=== PATIENT | male | born 1975 | race Caucasian/White ===

== ENCOUNTER 2018-07-25 10:39 | Inpatient (IN) | payer OTHER ==
[2018-07-25] VITALS (8 sets, daily range): BP systolic 99–121; BP diastolic 24–90
[~2018-07-25] VITALS: Ht 188 cm; Wt 147.4 kg
--- NOTE | 2018-07-25 10:39 | NUR ---
Patient BIBA BLS, transferred to bed 10. RN evaluating patient at bedside.
--- NOTE | 2018-07-25 10:39 | NUR ---
PT BIB [facility] TO THE ED WITH THE CHIEF C/O SOB. SWALLOW BREATHING. TACHYPNIC AT THIS TIME. ON NON-REBREATHER 100%. SPO2 92%. LUNGS COARSE ON AUSCULTATION. FEBRILE. TEMPERATURE 103.4 DEGREE F. COOLING MEASURES APPLIED. A/O X4. GCS 15. PT RE[PORTS VOMITING X3 LAST NIGHT. NO BLOOD IN VOMIT. DENIES DIARRHEA. STATES GENERALIZED BODY PAIN 10/10 AT THIS TIME. PT HAS NOT TAKE ANY PAIN MEDS TODAY PER PT. ER MD AWARE OF PT STATUS AND FEVER.
--- NOTE | 2018-07-25 10:42 | NUR ---
Dr. Benavides evaluating patient at bedside.
[2018-07-25] MEDS ORDERED: IPRATROPIUM 0.02% 0.5 MG/2.5 ML NEBU INH ONE (11:00)
[2018-07-25] MEDS ORDERED: KETOROLAC 30 MG/ML VIAL IVP ONE (11:00)
[2018-07-25] MEDS ORDERED: ALBUTEROL 0.083% 2.5 MG/3 ML NEBU INH ONE (11:00)
[2018-07-25] MEDS ORDERED: ACETAMINOPHEN 325 MG TAB PO ONE (11:00)
--- NOTE | 2018-07-25 11:10 | NUR ---
RECEIVED PT FROM EMT ON BREATHING RX PT AWAKE ALERT S.O.B PLACED PT ON NRM SPO2 88 TO .90 BREARTH SOUNDS PRESENT BILAT COARSE SHALLOW HHN RX GIVEN ABG DRAWN DR MORILLO ORDERED PT BE PUT ON BIPAP WITH SETTINGS CHARTED WILL CONTINUE TO MONITOR PT
--- NOTE | 2018-07-25 11:10 | NUR ---
Dr. Benavides re-evaluating patient at bedside.
--- NOTE | 2018-07-25 11:21 | NUR ---
SANDIE GARCIA FOR UA SAMPLE CORRECTION. Addendum: 07/25/18 at 1132 by LILIAN COLLECTION.
--- NOTE | 2018-07-25 11:24 | NUR ---
Breathing treatment administered at bedside by respiratory therapist.
[2018-07-25] MEDS ORDERED: THO25 PO (11:26)
[2018-07-25] MEDS ORDERED: PANT40EC PO (11:26)
[2018-07-25] MEDS ORDERED: DOL10 PO (11:26)
[2018-07-25] MEDS ORDERED: MIRABULK PO (11:26)
[2018-07-25] MEDS ORDERED: ASPI-1718 PO (11:26)
[2018-07-25] MEDS ORDERED: SULF500T6 PO (11:26)
[2018-07-25] MEDS ORDERED: FERR325E14 PO (11:26)
[2018-07-25] MEDS ORDERED: GABA400C PO (11:26)
[2018-07-25] MEDS ORDERED: DOCU-299 PO (11:26)
[2018-07-25] MEDS ORDERED: [UNRECOGNIZED DRUG - CODE] PO (11:26)
[2018-07-25] MEDS ORDERED: LEVE750T3 PO (11:26)
[2018-07-25] MEDS ORDERED: NUTR887L PO (11:26)
[2018-07-25] MEDS ORDERED: VENL150C1 PO (11:26)
[2018-07-25] MEDS ORDERED: SENN-72 PO (11:26)
[2018-07-25] MEDS ORDERED: LACT10SO1 PO (11:26)
[2018-07-25] MEDS ORDERED: HYDR200T5 PO (11:26)
--- NOTE | 2018-07-25 11:32 | NUR ---
RT AT THE BEDSIDE.
[2018-07-25 11:41] LABS: HEMATOCRIT 34.7 % (36-52); HEMOGLOBIN 11.3 g/dL (12.0-18.0); MEAN CORPUSCULAR HEMOGLOBIN 29 pg (27-31); MEAN CORPUSCULAR HGB CONC 32 g/dL (33-37); MEAN CORPUSCULAR VOLUME 89.2 fL (80-94); PLATELET COUNT (AUTO) 125 K/uL (140-450); RED BLOOD CELL COUNT(AUTO) 3.89 MIL/uL (4.20-6.10); RED CELL DISTRIBUTION WIDTH 15.1 % (11.6-13.7); WHITE BLOOD COUNT (AUTO) 13.4 K/uL (4.8-10.8)
--- NOTE | 2018-07-25 11:42 | NUR ---
registered radiologic technologist at bedside.
[2018-07-25] MEDS ORDERED: ATI.5 PO (11:51)
[2018-07-25] MEDS ORDERED: NITR0.4T2 SL (11:51)
[2018-07-25] MEDS ORDERED: PRED10TA5 PO (11:51)
[2018-07-25] MEDS ORDERED: LIP80 PO (11:51)
[2018-07-25] MEDS ORDERED: ACET-5636 PO (11:51)
[2018-07-25] MEDS ORDERED: DEXT15SY7 PO (11:51)
[2018-07-25] MEDS ORDERED: OFLO5SOL27 OT (11:51)
[2018-07-25] MEDS ORDERED: SUCR1TAB35 PO (11:51)
[2018-07-25] MEDS ORDERED: MAGN400S60 PO (11:51)
[2018-07-25] MEDS ORDERED: CARV6.25 PO (11:51)
[2018-07-25] MEDS ORDERED: OLOPATADINE HCL BOTH EYES (11:51)
[2018-07-25] MEDS ORDERED: INSU100S22 SUBQ (11:51)
[2018-07-25] MEDS ORDERED: METO-485 PO (11:51)
[2018-07-25] MEDS ORDERED: ZOLP10TA1 PO (11:51)
[2018-07-25] MEDS ORDERED: ACET-2619 PO (11:51)
[2018-07-25] MEDS ORDERED: SIME80CT70 PO (11:51)
[2018-07-25] MEDS ORDERED: IMI50 PO (11:51)
--- NOTE | 2018-07-25 11:54 | NUR ---
FEVER DECREASED TO 99.6 DECREASE F.
[2018-07-25 11:55] LABS: APPEARANCE,URINE CLEAR (CLEAR); BILIRUBIN,URINE NEGATIVE (NEGATIVE); BLOOD, URINE 2+ (NEGATIVE); COLOR,URINE YELLOW (YELLOW); LEUKOCYTE ESTERASE ,URINE NEGATIVE (NEGATIVE); NITRITE, URINE NEGATIVE (NEGATIVE); UGLUCOSE NEGATIVE (NEGATIVE)
--- NOTE | 2018-07-25 11:56 | NUR ---
PT BEING RE-EVALUATED BY ALLISON TOSCANO AT THIS TIME.
--- NOTE | 2018-07-25 12:07 | NUR ---
RT AT THE BEDSIDE, PLACING PT ON BIPAP.
[2018-07-25 12:11] LABS: BASOPHILS % (MANUAL) 0 % (0-2); EOSINOPHILS % (MANUAL) 1 % (0-4); LYMPHOCYTES % (MANUAL) 4 % (20-46); MONOCYTES % (MANUAL) 5 % (5-12)
[2018-07-25 12:16] LABS: RBC,URINE 11-20 (MOD) /HPF (0-5); WBC,URINE 0-5 /HPF (0-5)
[2018-07-25 12:16] LABS: ALBUMIN 2.3 g/dL (3.4-5.0); ANION GAP 13.6 (8-16); CARBON DIOXIDE 26.3 mmol/L (21-32); CREATININE 0.8 mg/dL (0.7-1.3); POTASSIUM 3.9 mmol/L (3.5-5.1); TOTAL BILIRUBIN 0.6 mg/dL (0.0-1.0)
[2018-07-25] MEDS ORDERED: SUMAtriptan 50 MG TAB PO ONE (12:50)
[2018-07-25] MEDS ORDERED: LEVOFLOXACIN 500 MG/D5W PREMIX 100 ML IV ONE (12:50)
--- NOTE | 2018-07-25 12:57 | NUR ---
Dr. Morton evaluating patient at bedside.
[2018-07-25] MEDS: NACL 0.9% 1,000 ML IV SCH (12:59)
[2018-07-25] MEDS: ALBUTEROL 0.083% 2.5 MG/3 ML NEBU IH SCH ×2 (13:00→19:34)
[2018-07-25] MEDS ORDERED: methylPREDNISolone SS 40 MG/ML VIAL IVP SCH (13:11)
[2018-07-25] MEDS ORDERED: methylPREDNISolone SS 125 MG/2 ML VIAL IVP SCH (13:20)
--- NOTE | 2018-07-25 14:35 | NUR ---
PT TRANSFERRED TO ICU 7 VIA GURNEY ON STABLE CONDITION, ACCOMPANIED BY RT. BELONGINGS TAKEN WITH PATIENT. REPORT GIVEN TO CRISTIAN MALLOY.
--- NOTE | 2018-07-25 14:45 | NUR ---
RECEIVED PT TRANSFERRED FROM ER VIA RNEY, OBTAINED REPORT AT BEDSIDE, PT IS AAOX4, ABLE TO FOLLOW COMMANDS AND MAKE NEEDS KNOWN, VSS, C/O LOWER BACK PAIN AND GENERALIZED PAIN, 6/10, NO S/S OF DISTRESS, CRACKLES LUNG SOUNDS MARIE. 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 LARGE SOFT ABDOMEN WITH ACTIVE BOWEL SOUNDS, CONTINENT WITH B&B'S, GENERALIZED WEAKNESS, LEFT KNEE BRACE NOTED, SKIN IS INTACT, WARM AND DRY TO TOUCH, IV SITE TO LEFT AC, 20GA, RUNNING NS AT 75ML/HR, SL TO LEFT HAND, 18GA, PAIN WHEN FLUSH NOTED, WILL REMOVE THE LINE, EXPLAINED POC TO PT, PT VERBALIZED UNDERSTANDING, HOB ELEVATED TO 30 DEGREES, SAFETY MEASURES IN PLACE, CALL LIGHT WITHIN REACH, WILL CONTINUE TO MONITOR.
--- NOTE | 2018-07-25 14:49 | NUR ---
TRANSFERRED PT TO ICU BED 7 ON BIPAP MACHINE NO ILL EFFECTS NOTED
--- NOTE | 2018-07-25 15:05 | NUR ---
TRANSFERRED TO CT VIA BED WITH RN, RT AND PLASTIC PRODUCTION MACHINE SETTER.
--- NOTE | 2018-07-25 15:40 | NUR ---
BACK TO ICU, PT TOLERATED WELL, STATED WOUND LIKE SOMETHING TO EAT AND HIS DAILY MEDICATIONS, DR. SHANKS PAGED.
[2018-07-25] MEDS ORDERED: METOCLOPRAMIDE 10 MG/2 ML INJ VIAL IVP PRN (16:00)
--- NOTE | 2018-07-25 16:00 | NUR ---
PT IS RESTING IN BED, NO S/S OF DISTRESS, VSS, STATED GENERALIZED PAIN 10/10, WILL MEDICATED.
[2018-07-25] MEDS ORDERED: DEXTROSE 50% 50 ML SYR IVP PRN (16:10)
[2018-07-25] MEDS ORDERED: INSULIN LISPRO SLIDING SCALE 100 UNITS/ML VIAL SUBQ PRN (16:10)
[2018-07-25] MEDS: MORPHINE SULFATE 2 MG/ML SYR IVP PRN ×2 (16:30→22:28)
[2018-07-25] MEDS ORDERED: PANTOPRAZOLE 40 MG INJ VIAL IVP SCH (16:40)
[2018-07-25] MEDS: BLOOD GLUCOSE MONITORING 1 DEV DEV FS SCH ×2 (16:42→20:37)
--- NOTE | 2018-07-25 16:45 | NUR ---
RECEIVED PT TRANSFERRED FROM ER VIA GURNEY, OBTAINED REPORT AT BEDSIDE, PT IS AAOX4, ABLE TO FOLLOW COMMANDS AND MAKE NEEDS KNOWN, VSS, C/O LOWER BACK PAIN AND GENERALIZED PAIN, 6/10, NO S/S OF DISTRESS, CRACKLES LUNG SOUNDS MARIE. ON BIPAP AT FIO2 60%, O2 SAT 99%, DENIES CHEST PAIN, SR ON MASTER OCEAN YACHT. LARGE SOFT ABDOMEN WITH ACTIVE BOWEL SOUNDS, CONTINENT WITH B&B'S, GENERALIZED WEAKNESS, LEFT KNEE BRACE NOTED, SKIN IS INTACT, WARM AND DRY TO TOUCH, IV SITE TO LEFT AC, 20GA, RUNNING NS AT 75ML/HR, SL TO LEFT HAND, 18GA, PAIN WHEN FLUSH NOTED, WILL REMOVE THE LINE, EXPLAINED POC TO PT, PT VERBALIZED UNDERSTANDING, HOB ELEVATED TO 30 DEGREES, SAFETY MEASURES IN PLACE, CALL LIGHT WITHIN REACH, WILL CONTINUE TO MONITOR. Addendum: 07/25/18 at 1754 by Gordon Ochoa RN WRONG TIME, IT IS 1445.
[2018-07-25] MEDS ORDERED: GABAPENTIN 300 MG CAP PO SCH (17:00)
[2018-07-25] MEDS: methylPREDNISolone SS 40 MG/ML VIAL IVP SCH ×2 (17:46→23:08)
[2018-07-25] MEDS ORDERED: methylPREDNISolone SS 40 MG in WATER STERILE 1 ML IV ONE (18:00)
--- NOTE | 2018-07-25 18:00 | NUR ---
NO CHANGE OF CONDITION AT THIS TIME, VSS, POSITION CHANGED FOR OFF LOAD PRESSURE.
--- NOTE | 2018-07-25 19:20 | NUR ---
REPORT GIVEN TO CARPENTERS SUPERVISOR NURSE FOR CONTINUE OF CARE, PT IS IN STABLE CONDITION AT THIS TIME.
--- NOTE | 2018-07-25 19:30 | NUR ---
RECEIVED REPORT FROM MELLISSA FOSTER AM SHIFT. PT IS ALERT ORIENTED X4,VERBAL RESPONSE ABLE TO MAKE ALL NEEDS KNOWN. PT CONTINUOS ON BI-PAP FIO2 AT 80 % TOLERATED WELL, NO S/S OF RESP.DISTRESS,NO SOB. RESP EVEN UN LABOR. MARIE LUNGS SOUND CLEAR. SR ON MONITOR. C/O MILD PAIN 07/01 AT THIS TIME, ALREADY GOT PRN MORPHINE INJ ORDER PER REPORT. REPOSITION PT FOR COMFORT.HOB UP 45 DEGREES. PT WATCHING TV AT THIS TIME. SKIN WARM TO TOUCH.NO FEVER AT THIS TIME.IV LINE TO LEFT AC NO 20 GAUGE. NS RUNNING AT 75 CC/HR. PERIPHERAL LINE INTACT AND NO S.S OF INFILTRATION. ABD SOFT NON DISTENDED. PT NPO AT THIS TIME EXCEPT MEDS.LEFT KNEE BRACE IN PLACE FOR LEFT KNEE ACL TEAR. SKIN INTACT.PT IS CONTINENT BOWEL AND BLADDER.GENTLE CARE GIVEN. CALL LIGHT IN REACH.KEPT CLEAN AND DRY.
--- NOTE | 2018-07-25 19:59 | NUR ---
COME TO SEE PTS NEW ORDER GIVEN CARLA FLUE 75 MG BID PO FOR 5 DAYS. ORDER WAS NOTED AND CARRIED OUT.
[2018-07-25] MEDS: METHADONE 10 MG TAB PO SCH (20:27)
[2018-07-25] MEDS: levETIRAcetam 750 MG in NACL 0.9% 100 ML IV SCH (20:27)
[2018-07-25] MEDS ORDERED: OSELTAMIVIR PHOSPHATE 75 MG CAP ONE (20:57)
[2018-07-25] MEDS ORDERED: OSELTAMIVIR PHOSPHATE 75 MG CAP PO SCH (21:00)
--- NOTE | 2018-07-25 21:00 | NUR ---
NIGHT MEDS GIVEN PO TOLERATED WELL. BLOOD SUGAR 117 NO COVERAGE NEEDED.
--- NOTE | 2018-07-25 21:16 | NUR ---
pt uncomfortable on bipap and requested to be taken off for a break, pt states he feels better and does not need it anymore, pt placed on NRB mask at this time, tolerating well, spo2 93%, Sarah RN aware, will titrate as tolerated, will cont to monitor.
--- NOTE | 2018-07-25 21:30 | NUR ---
PT WAS SAYING NOT COMFORTABLE WITH BI-PAP, HE SAID WANT TO TAKE A BREAK. RT PUT PT ON NON RE-BREATHE MASK WITH 15 LPM O2/100%. PT TOLERATED WELL AT THIS TIME O2 SAT 90-93% NO SOB,NO RESP DISTRESS AT THIS ITME. CONTINUE TO MONITOR CLOSELY.
--- NOTE | 2018-07-25 23:14 | NUR ---
PT WAS C/O PAIN LOWER BACK AND LEFT KNEE PAIN 10/10 AND MORPHINE 2 MG IVP WAS GIVEN FOR PAIN, AFTER 30 MINUTES PT SAID FEELING BETTER AND PAIN LEVEL 3/10.PT WATCHING TV AND LOOK CALM. CONTINUE TO MONITOR CLOSELY.
[2018-07-26] VITALS (16 sets, daily range): BP systolic 90–114; BP diastolic 43–72
--- NOTE | 2018-07-26 00:02 | NUR ---
PT C/O PAIN 10/10 AT THIS TIME. GIVEN MORPHINE 4MG. WILL REASSESS PAIN LEVEL
--- NOTE | 2018-07-26 00:10 | NUR ---
PUT PT BACK ON BIPAP WITH FIO2 80% TOLERATED WELL SPO2 93-97%.PT START TO SLEEP.MID NIGHT MED GIVEN ORDER. REPOSITION PT FOR COMFORT. PT URINATE X1 ABOUT 1400 CC,NO HEMATURIA NOTED. KEPT CLEAN AND DRY.
[2018-07-26] MEDS: ALBUTEROL 0.083% 2.5 MG/3 ML NEBU IH SCH ×4 (00:11→21:32)
--- NOTE | 2018-07-26 02:00 | NUR ---
PT SLEEPING COMFORTABLY,NO S/S OF ANY RESP DISTRESS,NO SOB.CONT ON BIPAP WITH FIO2 80%.
[2018-07-26] MEDS: NACL 0.9% 1,000 ML IV SCH ×3 (02:55→22:28)
--- NOTE | 2018-07-26 04:12 | NUR ---
REPOSITION PT FOR COMFORT. PT BACK TO SLEEP.
[2018-07-26] MEDS: METHADONE 10 MG TAB PO SCH ×3 (05:13→20:03)
[2018-07-26] MEDS: methylPREDNISolone SS 40 MG/ML VIAL IVP SCH ×4 (05:13→23:14)
--- NOTE | 2018-07-26 05:20 | NUR ---
PT SAYING NEED TO TAKE A BREAK FROM BIPAP,PUT PT ON NON RE-BREATHE MASK 100%(15LPM) TOLERATED WELL SPO2 92-94%. NO S/S OF ANY RESP DISTRESS, NO SOB NOTED.HOB UP 45 DEGREES. BLOOD DRAWN FOR CBC AND CMP DONE RESULT TO FOLLOW.PT WATCHING TV.
[2018-07-26 06:04] LABS: HEMOGLOBIN 11.6 g/dL (12.0-18.0); LYMPHOCYTES # (AUTO) 0.5 K/uL (2.0-11.5); LYMPHOCYTES % (AUTO) 2.6 % (20.5-51.1); MEAN CORPUSCULAR HEMOGLOBIN 29 pg (27-31); MEAN CORPUSCULAR HGB CONC 32 g/dL (33-37); MEAN CORPUSCULAR VOLUME 89.3 fL (80-94); MONOCYTES # (AUTO) 0.5 K/uL (0.8-1.0); MONOCYTES % (AUTO) 2.8 % (1.7-9.3); NEUTROPHILS # (AUTO) 17.2 K/uL (1.8-7.7); NEUTROPHILS % (AUTO) 94.6 % (42.2-75.2); PLATELET COUNT (AUTO) 138 K/uL (140-450); RED BLOOD CELL COUNT(AUTO) 4.03 MIL/uL (4.20-6.10); RED CELL DISTRIBUTION WIDTH 15.4 % (11.6-13.7); WHITE BLOOD COUNT (AUTO) 18.2 K/uL (4.8-10.8)
[2018-07-26] MEDS: MORPHINE SULFATE 2 MG/ML SYR IVP PRN ×5 (06:09→21:59)
[2018-07-26 06:16] LABS: ALBUMIN 2.2 g/dL (3.4-5.0); ANION GAP 11.4 (8-16); CARBON DIOXIDE 29.1 mmol/L (21-32); CREATININE 0.7 mg/dL (0.7-1.3); POTASSIUM 4.5 mmol/L (3.5-5.1); TOTAL BILIRUBIN 0.4 mg/dL (0.0-1.0)
--- NOTE | 2018-07-26 06:27 | NUR ---
AM CARE GIVEN. TOLERATING WELL.
--- NOTE | 2018-07-26 06:30 | NUR ---
CHEST X RAY DONE RESULT TO FOLLOW. AM MEDS GIVEN. BLOOD SUGAR 106 NO COVERAGE NEEDED.
[2018-07-26] MEDS: BLOOD GLUCOSE MONITORING 1 DEV DEV FS SCH ×4 (06:38→20:21)
--- NOTE | 2018-07-26 08:00 | NUR ---
PATIENT AWAKE, ALERT, ORIENTEDX4, ON NON REBREATHER MASK SO2 92%, NO SHORTNESS OF BREATH NOTED, PATIENT CALM, SINUS RHYTHM ON MONITOR, NPO EXCEPT MEDICATIONS ORDERED, SOFT FLABBY ABDOMEN, NORMAL BOWEL SOUNDS, PATIENT CONTINENT AND USES URINAL ACCORDING TO HIM, GAUGE 20 PERIPHERAL LINE AT RIGHT FOREARM-NORMAL SALINE 75 ML/HR INFUSING. SKIN INTACT, LEG BRACE ON AT LEFT SIDE. CALL BERMUDEZ WITHIN REACH, HEAD OF BED UP30 DEGREES AND UP
--- NOTE | 2018-07-26 08:00 | NUR ---
recived pt on 100% nrm spo2 low 90 instructed pt to go back on bipap with settings as charted breath sounds present bilat diminished will continue to monitor pt on bipap
--- NOTE | 2018-07-26 08:08 | NUR ---
PATIENT HAS BEEN SCREENED AND CATEGORIZED HIGH NUTRITION RISK. PATIENT WILL BE SEEN WITHIN 1-2 DAYS OF ADMISSION. 07/26/18-07/27/[address]
--- NOTE | 2018-07-26 08:25 | NUR ---
DR. SHANKS AT BEDSIDE
[2018-07-26] MEDS: PANTOPRAZOLE 40 MG INJ VIAL IVP SCH (08:57)
[2018-07-26] MEDS: LEVOFLOXACIN 250 MG/D5 PREMIX 50 ML IV SCH (08:57)
[2018-07-26] MEDS: GABAPENTIN 300 MG CAP PO SCH ×2 (08:58→20:03)
[2018-07-26] MEDS: ENOXAPARIN 40 MG/0.4 ML SYR SUBQ SCH (09:00)
--- NOTE | 2018-07-26 09:00 | NUR ---
OK FOR DR. SHANKS AND PATIENT FOR PICC LINE INSERTION. WILL HOLD LOVENOX FOR TODAY
[2018-07-26] MEDS: levETIRAcetam 750 MG in NACL 0.9% 100 ML IV SCH ×2 (09:01→20:02)
[2018-07-26] MEDS: OSELTAMIVIR PHOSPHATE 75 MG CAP PO SCH ×2 (09:01→20:04)
[2018-07-26] MEDS ORDERED: PROBIOTIC SCREEN 1 EA MISC MC PRN (11:25)
[2018-07-26 12:42] LABS: PROTHROMBIN TIME 10.2 secs (10.8-13.4)
--- NOTE | 2018-07-26 13:00 | NUR ---
BEDSIDE ECHO ONGOING. MANAGER GOLF AT BEDSIDE
--- NOTE | 2018-07-26 13:26 | NUR ---
07/26/18 RD INITIAL ASSESSMENT COMPLETED PLEASE REFER TO NUTRITION ASSESSMENT UNDER CARE ACTIVITY FOR ESTIMATED NUTRITIONAL NEEDS. 1. RECOMMEND MULTIVITAMIN, VITAMIN B12, IRON, CALCIUM, AND VITAMIN D FOR HX OF GASTRIC BYPASS 2. WHEN PATIENT IS MEDICALLY STABLE CONSIDER ADVANCING TO A SOFT DIET WITH ENSURE HIGH PROTEIN TID TOLERATED 4. RD TO FOLLOW-UP 3-5 DAYS, MODERATE RISK LYN MARTINEZ, RD
--- NOTE | 2018-07-26 15:41 | NUR ---
PICC LINE INSERTION ONGOING WITH PICC LINE RN DESTINEE AFTER CONFIRMING SIGNED CONSENT AND DOING TIME OUT
--- NOTE | 2018-07-26 15:50 | NUR ---
OK TO USE PICC LINE PER RN DESTINEE. PATIENT ON NON REBREATHER MASK AT THIS TIME PER HIS REQUEST. SO2 92%. RT BILL AT BEDSIDE. WILL CONTINUE TO MONITOR
[2018-07-26] MEDS: FERROUS SULFATE 325 MG TABEC PO SCH (16:07)
--- NOTE | 2018-07-26 17:23 | NUR ---
Extractor Operator Helper Note: Per nurse Sarah from [facility] (formerly [facility] , patient is on a 7 day bed hold and is one of their skilled nursing patients. She stated patient is self responsible with medical decisions. She reported she is not sure if patient has an existing Advance Directives for health care and requested I contact their community education coordinator tomorrow and ask. There is a copy of POLST in patient's chart, copy indicates there is no Advance Directives. Skoog Operator or Tooth Cutter Contact Wheel will follow up tomorrow regarding Advance Directives.
--- NOTE | 2018-07-26 18:00 | NUR ---
PATIENT REMOVED HIS LEG BRACE AND GIVE SPONGE BATH TO SELF. HE REFUSED FUL LINEN CHANGE. GOWN, BLANKET CHANGED
--- NOTE | 2018-07-26 19:02 | NUR ---
RECEIVED REPORT FROM AM SHIFT. PT A0X4. ABLE TO VERBALIZE NEEDS. AFEBRILE. ON BIPAP FIO2 80%. EVEN UNLABORED BREATHING. COUGHING INTERMITTENTLY NOTED. SR ON MONITOR. DENIES CHEST PAIN. NPO EXCEPT MEDS. ABD SOFT NONTENDER. USES URINAL. PICC TO RIGHT UA. RUNNING NS @ 75ML/HR. IV SITE PATENT. NO SIGNS OF ACUTE DISTRESS. BED IN LOWEST POSITION. HOB 30. SR UP X4. WILL CONTINUE TO MONITOR.
--- NOTE | 2018-07-26 19:45 | NUR ---
PT C/O HEADACHE AT THIS TIME. DR. SHANKS PAGED NEW ORDER OF TORADOL 30MG Q6 AND MORPHINE 4MG Q6 AT THIS TIME
[2018-07-26] MEDS: KETOROLAC 30 MG/ML VIAL IVP PRN (20:16)
--- NOTE | 2018-07-26 20:17 | NUR ---
C/O HEADACHE. GIVEN TORADOL AT THIS TIME
--- NOTE | 2018-07-26 20:45 | NUR ---
DR. TURNER AT BEDSIDE AT THIS TIME. UPDATED ON PTS CURRENT CONDITION. WILL CONTINUE TO FOLLOW UP ANY ADDITIONAL ORDERS.
--- NOTE | 2018-07-26 21:32 | NUR ---
RECEIVED PATIENT ON DOCUMENTED BIPAP SETTINGS. SKIN INTACT. GEL BARRIER IN PLACE. AMBU BAG AT BEDSIDE. SCHEDULED BREATHING TREATMENT ADMINISTERED. TOLERATED TX WELL, NO ADVERSE SIDE EFFECTS. WILL CONTINUE TO MONITOR.
--- NOTE | 2018-07-26 21:50 | NUR ---
PLACED PATIENT ON VENTURI MASK AT 50% FIO2. TOLERATING WELL. WILL CONTINUE TO MONITOR AND TITRATE TO MAINTAIN ADEQUATE OXYGENATION AND KEEP SATURATION ABOUT 92%. RN NOTIFIED.
--- NOTE | 2018-07-26 22:00 | NUR ---
PT C/O PAIN /10. GIVEN MORPHINE 2MG AT THIS TIME. WILL REASSESS PAIN LEVEL
--- NOTE | 2018-07-26 22:09 | NUR ---
RT AT BEDSIDE. PT PUT ON VENTURI MASK
[2018-07-27] VITALS (15 sets, daily range): BP systolic 87–134; BP diastolic 40–92
[2018-07-27] MEDS: MORPHINE SULFATE 4 MG/ML SYR IVP PRN ×4 (00:17→19:00)
--- NOTE | 2018-07-27 01:00 | NUR ---
PT SLEEPING AT THIS TIME. DENIES PAIN. NO SIGNS OF ACUTE DISTRESS NOTED.
[2018-07-27] MEDS: ALBUTEROL 0.083% 2.5 MG/3 ML NEBU IH SCH ×4 (01:19→19:22)
--- NOTE | 2018-07-27 01:33 | NUR ---
PATIENT DESATURATING TO 87%. SCHEDULED BREATHING TREATMENT GIVEN. TOLERATED WELL, NO ADVERSE SIDE EFFECTS. PLACED PATIENT BACK ON BIPAP. SEE RT NIPPV DOCUMENTATION. TOLERATING BIPAP WELL. WILL CONTINUE TO MONITOR.
[2018-07-27] MEDS: MORPHINE SULFATE 2 MG/ML SYR IVP PRN ×4 (02:26→20:07)
--- NOTE | 2018-07-27 02:30 | NUR ---
PT C/O PAIN. ADMINISTERED MORPHINE 2MG IVP.
--- NOTE | 2018-07-27 03:20 | NUR ---
PT ON BIPAP ON THIS TIME
[2018-07-27] MEDS: KETOROLAC 30 MG/ML VIAL IVP PRN ×2 (03:26→21:59)
[2018-07-27] MEDS: ALBUTEROL 0.083% 2.5 MG/3 ML NEBU INH PRN (03:29)
--- NOTE | 2018-07-27 04:45 | NUR ---
LAB AT BEDSIDE AT THIS TIME. WITHDREW BLOOD VIA PICC LINE
--- NOTE | 2018-07-27 04:45 | NUR ---
CHEST XRAY AT BEDSIDE AT THIS TIME.
[2018-07-27 04:57] LABS: HEMATOCRIT 33.5 % (36-52); HEMOGLOBIN 10.9 g/dL (12.0-18.0); MEAN CORPUSCULAR HEMOGLOBIN 29 pg (27-31); MEAN CORPUSCULAR HGB CONC 33 g/dL (33-37); MEAN CORPUSCULAR VOLUME 89.1 fL (80-94); PLATELET COUNT (AUTO) 158 K/uL (140-450); RED BLOOD CELL COUNT(AUTO) 3.76 MIL/uL (4.20-6.10); RED CELL DISTRIBUTION WIDTH 15.2 % (11.6-13.7); WHITE BLOOD COUNT (AUTO) 21.3 K/uL (4.8-10.8)
[2018-07-27] MEDS: METHADONE 10 MG TAB PO SCH ×3 (05:06→20:06)
[2018-07-27] MEDS: methylPREDNISolone SS 40 MG/ML VIAL IVP SCH ×3 (05:06→17:03)
[2018-07-27 05:17] LABS: ALBUMIN 2.1 g/dL (3.4-5.0); ANION GAP 12.4 (8-16); CARBON DIOXIDE 27.7 mmol/L (21-32); CREATININE 0.7 mg/dL (0.7-1.3); POTASSIUM 4.1 mmol/L (3.5-5.1); TOTAL BILIRUBIN 0.3 mg/dL (0.0-1.0)
[2018-07-27 05:29] LABS: BASOPHILS % (MANUAL) 0 % (0-2); EOSINOPHILS % (MANUAL) 0 % (0-4); LYMPHOCYTES % (MANUAL) 0 % (20-46); MONOCYTES % (MANUAL) 4 % (5-12)
--- NOTE | 2018-07-27 05:34 | NUR ---
FIO2 TITRATED TO 40%, PULSE OX SAT 97%. WILL CONTINUE TO MONITOR.
--- NOTE | 2018-07-27 06:33 | NUR ---
BLOOD SUGAR 41MGDL. WILL ADMINISTER D50 IVP AND RECHECK SUGAR Addendum: 07/27/18 at 0729 by Lakhwinder Roas RN wrong pt
--- NOTE | 2018-07-27 07:24 | NUR ---
RECHECKED BLOOD SUGAR. CURRENT SUGAR 125 MGDL Addendum: 07/27/18 at 8822 by Lakhwinder Rosa RN wrong pt
--- NOTE | 2018-07-27 07:25 | NUR ---
ENDORSED CARE TO INCOMING SHIFT FOR CONTINUITY OF CARE
--- NOTE | 2018-07-27 07:30 | NUR ---
PATIENT AWAKE, ALERT, ORIENTEDX4, ON BIPAP FIO2 40% 14/6 RATE 14, SO2 >92%, NO SHORTNESS OF BREATH NOTED, PATIENT CALM, SINUS RHYTHM ON MONITOR, NPO EXCEPT MEDICATIONS ORDERED, SOFT FLABBY ABDOMEN, NORMAL BOWEL SOUNDS, PATIENT CONTINENT AND USES URINAL ACCORDING TO HIM, 2 LUMEN PICC AT RIGHT UPPER ARM-NORMAL SALINE 75 ML/HR INFUSING, SITE ASYMPTOMATIC. SKIN INTACT, OFF LEG BRACE. CALL BERMUDEZ WITHIN REACH, HEAD OF BED UP30 DEGREES AND UP
--- NOTE | 2018-07-27 07:39 | NUR ---
PT TAKEN OFF OF BIPAP PER REQUEST OF AND PLACED ON 6L OXYMIZER SPO2 95% AT THIS TIME AND PT IS NOT IN ANY DISTRESS AT THIS TIME. PT SITTING UP IN BED WATCHING TV. WILL CONTINUE TO MONITOR.
--- NOTE | 2018-07-27 07:45 | NUR ---
DR. SHANKS AT BEDSIDE
[2018-07-27] MEDS: MULTIVITAMIN 1 TAB PO SCH (08:08)
[2018-07-27] MEDS: CALCIUM CARB/VIT-D 500 MG/200 IU 1 TAB PO SCH (08:08)
[2018-07-27] MEDS: CYANOCOBALAMIN 100 MCG TAB PO SCH (08:08)
[2018-07-27] MEDS: FERROUS SULFATE 325 MG TABEC PO SCH ×2 (08:08→16:58)
[2018-07-27] MEDS: PANTOPRAZOLE 40 MG INJ VIAL IVP SCH (08:08)
[2018-07-27] MEDS: OSELTAMIVIR PHOSPHATE 75 MG CAP PO SCH ×2 (08:09→20:07)
[2018-07-27] MEDS: ENOXAPARIN 40 MG/0.4 ML SYR SUBQ SCH (08:11)
--- NOTE | 2018-07-27 08:27 | NUR ---
PATIENT ATE 100% OF HIS BREAKFAST INDEPENDENTLY. ON OXYMIZER O2 8L/MIN. SO2 95%
--- NOTE | 2018-07-27 08:27 | NUR ---
Late entry. Confirmed with RN that Levaquin was given IVPB over 1 hour ended at 1435 from [facility] ED and continued to infuse in the ICU. 0.9 NS IV infusing until discharge from the ED. began at 1408 and ended 1435
[2018-07-27] MEDS: BLOOD GLUCOSE MONITORING 1 DEV DEV FS SCH ×4 (08:32→21:03)
[2018-07-27] MEDS: LEVOFLOXACIN 250 MG/D5 PREMIX 50 ML IV SCH (09:26)
[2018-07-27] MEDS: GABAPENTIN 300 MG CAP PO SCH ×2 (09:26→21:08)
[2018-07-27] MEDS: levETIRAcetam 750 MG in NACL 0.9% 100 ML IV SCH ×2 (09:26→20:06)
--- NOTE | 2018-07-27 13:42 | NUR ---
DR. SHANKS UPDATED OF PATIENT'S CONDITION. PER PHYSICIAN MAY DECREASE NORMAL SALINE IV TO 40ML/HR. WILL ADVANCE DIET TOMORROW-READBACK AND VERIFIED
--- NOTE | 2018-07-27 18:00 | NUR ---
PATIENT COMPLAINING OF GENERALIZED PAIN 10/01 PATIENT STATED " I WANT MY MORPHINE 4 MGS" PATIENT SO2 87-90% AT THIS TIME. INFORMED PATIENT 2MGS MORPHINE WAS GIVEN 2 HOURS AGO, INFORMED PATIENT OF OTHER PAIN MANAGEMENT TECHNIQUES: ORDERED KETOROLAC PRN BUT HE REFUSED. EDUCATED PATIENT ON DEEP BREATHING TECHNIQUES, DISTRACTION WITH TV. EDUCATED PATIENT ON SIDE EFFECTS OF NARCOTICS INCLUDING RESPIRATORY DEPRESSION. PATIENT VERBALIZED UNDERSTANDING. ASSISTED PATIENT IN REPOSITIONING, SPONGE BATH RENDERED. . WILL CONTINUE TO MONITOR.
--- NOTE | 2018-07-27 19:06 | NUR ---
RECEIVED REPORT FROM AM SHIFT. PT A0X4. ABLE TO VERBALIZE NEEDS. AFEBRILE. RESPONDS TO VERBAL AND TACTILE STIMULI. ON OXIMIZER 6LPM. EVEN UNLABORED BREATHING. SR ON MONITOR. DENIES CHEST PAIN.ON CLEAR LIQUID DIET AT THIS TIME. ABD LARGE. CONTINENT TO BLADDER. WILI PICC. DRESSING INTACT. GENERALIZED WEAKNESS NOTED. ABLE TO REPOSITION SELF. BED IN LOWEST POSITION. CALL LIGHT WITHIN REACH. WILL CONTINUE TO MONITOR.
--- NOTE | 2018-07-27 20:00 | NUR ---
PT C/O PAIN IN BACK. REQUESTS MORPHINE IVP. WILL ADMINISTER PAIN MED AND REASSES PAIN LEVELS
[2018-07-27] MEDS ORDERED: GABAPENTIN 300 MG CAP ONE (20:36)
--- NOTE | 2018-07-27 21:30 | NUR ---
PT COMPLAINING OF NOSE HURTING AND SORNESS AND FEELS SHORT OF BREATH AND WOULD LIKE BIPAP. PLACED PT ON BIPAP AND PT FEELS BETTER. SPO2 96% RN AWARE. WILL CONTINUE TO MONITOR AND TITRATE TOLERATED.
--- NOTE | 2018-07-27 21:45 | NUR ---
PT REQUEST TORADOL 30MG AT THIS TIME. C/O HEADACHE.
--- NOTE | 2018-07-27 21:54 | NUR ---
RT AT BEDSIDE AT THIS TIME
[2018-07-27] MEDS: NACL 0.9% 1,000 ML IV SCH (22:20)
[2018-07-28] VITALS (14 sets, daily range): BP systolic 111–146; BP diastolic 61–89
[2018-07-28] MEDS: methylPREDNISolone SS 40 MG/ML VIAL IVP SCH ×4 (00:06→17:04)
[2018-07-28] MEDS: MORPHINE SULFATE 2 MG/ML SYR IVP PRN ×5 (00:06→23:33)
--- NOTE | 2018-07-28 00:06 | NUR ---
PT C/O PAIN IN BACK. WILL ADMINISTER PAIN MED IVP
[2018-07-28] MEDS: ALBUTEROL 0.083% 2.5 MG/3 ML NEBU IH SCH ×4 (00:32→19:42)
--- NOTE | 2018-07-28 00:36 | NUR ---
RT AT BEDSIDE AT THIS TIME
--- NOTE | 2018-07-28 02:00 | NUR ---
PT C/O PAIN 10/10 IN BACK. WILL ADMINISTER MORPHINE PRN. WILL REASSESS PAIN LEVEL
[2018-07-28] MEDS: MORPHINE SULFATE 4 MG/ML SYR IVP PRN ×4 (02:02→21:47)
[2018-07-28] MEDS: METHADONE 10 MG TAB PO SCH ×3 (05:06→20:47)
[2018-07-28] MEDS: KETOROLAC 30 MG/ML VIAL IVP PRN ×2 (06:49→17:13)
[2018-07-28] MEDS: BLOOD GLUCOSE MONITORING 1 DEV DEV FS SCH ×4 (07:01→20:48)
--- NOTE | 2018-07-28 07:22 | NUR ---
RECEIVED PT ON 7L OXYMIZER DESATURATING INTO MID 80'S AND TACHYPNEIC. PT PLACED ON BIPAP WITH DOCUMENTED SETTINGS. BREATHING TX ADMINISTERED. BIPAP ALARMS ON AND FUNCTIONING. PROTECTA GEL PLACED UNDER MASK FOR SKIN PROTECTION. WILL CONTINUE TO MONITOR.
--- NOTE | 2018-07-28 07:30 | NUR ---
RECEIVED PT FROM PM NURSE. PT AWAKE, ALERT. BEDSIDE MONITOR SHOWS SB 50S, PER PT ,THIS IS NORMAL FOR HIM. PT ON BIPAP , O2 SATS 95%. PT HAS PICC LINE TO RIGHT UPPER ARM RUNNING 0.9 NS AT 40 MLS/HR, PT STATED HE IS FINE BUT HE HAS CHRONIC PAIN , EXPLAINED TO PT HIS PAIN MEDICATION IS NOT DUE YET, WILL MEDICATE HIM SOON. PT VERBALIZED UNDERSTANDING, CALL LIGHT IN REACH, HOB ELEVATED 30 DEGREES, INTRODUCED MYSELF.WILL CONTINUE TO MONITOR PT.
--- NOTE | 2018-07-28 07:36 | NUR ---
ENDORSED CARE TO INCOMING SHIFT FOR CONTINUITY OF CARE. NO SIGNS OF ACUTE DISTRESS AT THIS TIME
[2018-07-28] MEDS: PANTOPRAZOLE 40 MG INJ VIAL IVP SCH (08:15)
[2018-07-28] MEDS: MULTIVITAMIN 1 TAB PO SCH (08:16)
[2018-07-28] MEDS: FERROUS SULFATE 325 MG TABEC PO SCH ×2 (08:16→17:04)
[2018-07-28] MEDS: CALCIUM CARB/VIT-D 500 MG/200 IU 1 TAB PO SCH (08:16)
[2018-07-28] MEDS: CYANOCOBALAMIN 100 MCG TAB PO SCH (08:17)
[2018-07-28] MEDS: LEVOFLOXACIN 250 MG/D5 PREMIX 50 ML IV SCH (08:17)
[2018-07-28] MEDS: levETIRAcetam 750 MG in NACL 0.9% 100 ML IV SCH ×2 (09:53→20:48)
[2018-07-28] MEDS: GABAPENTIN 300 MG CAP PO SCH ×2 (09:55→20:47)
[2018-07-28] MEDS: OSELTAMIVIR PHOSPHATE 75 MG CAP PO SCH ×2 (09:55→20:47)
[2018-07-28] MEDS: ENOXAPARIN 40 MG/0.4 ML SYR SUBQ SCH (09:58)
--- NOTE | 2018-07-28 11:25 | NUR ---
DR. MURPHY IN TO SEE PT. WILL FOLLOW UP. NOTFIED DR. MURPHY PT DOES NOT HAVE LAB WORK FOR TODAY.
--- NOTE | 2018-07-28 13:33 | NUR ---
PT WANTS TO BE TAKEN OFF BIPAP TO EAT. PT PLACED ON 8L OXYMIZER. PT NOT SOB AT THIS TIME. WILL CONTINUE TO MONITOR.
--- NOTE | 2018-07-28 15:19 | NUR ---
PT SITTING IN BED, ON OXYMIZER , USING CELLPHONE . PT STATED HE FEELS FINE AT THIS MOMENT.
--- NOTE | 2018-07-28 18:20 | NUR ---
offered pt bedpan, pt had bm. cleaned pt.
--- NOTE | 2018-07-28 19:13 | NUR ---
endorsed to pm nurse
--- NOTE | 2018-07-28 19:30 | NUR ---
RECEIVED REPORT FROM MORNING RN, TONYA, FOR CONTINUITY OF CARE. PERRL. AFEBRILE. PT AWAKE, ALERT AND ORIENTED X4. ABLE TO MAKE NEEDS KNOWN AND ABLE TO FOLLOW COMMANDS. PT DOES NOT APPEAR TO BE EXPERIENCING ANY DISCOMFORT AT THIS TIME. PT DENIES PAIN AND STATES THAT HE IS OKAY AT THIS TIME. S1+S2. SB TO SR ON MONITOR. PULSES ARE PALPABLE IN ALL EXTREMITIES. LUNG SOUNDS CLEAR. RECEIVED PT ON OXIMIZER AT 6L/MIN. RESPIRATIONS ARE EVEN AND UNLABORED. CHEST RISE SYMMETRIC. ABDOMEN ROUND, SOFT AND NONDISTENDED. PT CURRENTLY ON REGULAR DIET. PT ABLE TO USE URINAL. PT HAS A PICC LINE ON RIGHT UPPER ARM. LINE IS PATENT, INTACT, AND ASYMPTOMATIC. RECEIVED PT ON NS AT 40ML/HR. HOB KEPT AT 30 DEGREES. ALL SAFETY PRECAUTIONS ARE IN PLACE. CALL LIGHT WITHIN REACH. WILL CONTINUE TO MONITOR PT.
--- NOTE | 2018-07-28 19:55 | NUR ---
RECEIVED PATIENT ON 10L OXYMIZER, PULSE OX SAT 98%. SCHEDULED BREATHING TREATMENT ADMINISTERED. TOLERATED TX WELL, NO ADVERSE SIDE EFFECTS. BIPAP ON STANDBY AT THIS TIME. OXYMIZER TITRATED TO 8L, PULSE OX SAT 95%. PULSE OX PROBE AND SITE CHANGED. WILL CONTINUE TO TITRATE FIO2 TOLERATED TO MAINTAIN ADEQUATE SP02. NO RESPIRATORY DISTRESS NOTED AT THIS TIME. WILL CONTINUE TO MONITOR.
--- NOTE | 2018-07-28 20:50 | NUR ---
ALL SCHEDULED MEDICATIONS WERE ADMINISTERED. PT TOLERATED IT WELL. NO APPARENT PROBLEM SWALLOWING. PT WANTED PAIN MEDICATION AT THIS TIME BUT NONE OF THE PRNS ARE DUE. PER PT HE WILL WAIT UNTIL ONE OF THEM ARE AVAILABLE TO BE GIVEN. OFFERED NON-PHARMACOLOGIC PAIN MANAGEMENT BUT PT REFUSED AT THIS TIME.
[2018-07-28] MEDS: NACL 0.9% 1,000 ML IV SCH (23:30)
[2018-07-29] VITALS (11 sets, daily range): BP systolic 107–153; BP diastolic 46–97
--- NOTE | 2018-07-29 00:05 | NUR ---
NO CHANGE IN PT'S CONDITION AT THIS TIME. DOES NOT APPEAR TO BE IN ANY DISCOMFORT OR DISTRESS. PT CURRENTLY AWAKE AND WATCHING TV. PT REMAINS ON OXIMIZER. NO SOB NOTED. WILL CONTINUE TO MONITOR PT.
[2018-07-29] MEDS: methylPREDNISolone SS 40 MG/ML VIAL IVP SCH ×4 (00:31→17:42)
[2018-07-29] MEDS: KETOROLAC 30 MG/ML VIAL IVP PRN ×2 (00:37→16:35)
[2018-07-29] MEDS: ALBUTEROL 0.083% 2.5 MG/3 ML NEBU IH SCH ×4 (01:25→20:24)
--- NOTE | 2018-07-29 02:41 | NUR ---
PT ON BIPAP AT THIS TIME. CURRENTLY NO CHANGE IN CONDITION. SB TO SR ON MONITOR. PT DENIES ANY DISCOMFORT AT THIS TIME. ALL SAFETY PRECAUTIONS ARE STILL IN PLACE. WILL CONTINUE TO MONITOR PT.
[2018-07-29] MEDS: NACL 0.9% 1,000 ML IV SCH (03:29)
[2018-07-29] MEDS: MORPHINE SULFATE 4 MG/ML SYR IVP PRN ×3 (04:24→18:03)
--- NOTE | 2018-07-29 04:29 | NUR ---
OFFERED PM CARE TO PT OR EVEN JUST HAVE PADS AND GOWN TO BE CHANGED. PT REFUSED STATES THAT IT IS TOO EARLY AND WOULD WANT IT LATER. WILL OFFER IT AGAIN LATER.
[2018-07-29] MEDS: METHADONE 10 MG TAB PO SCH ×3 (05:48→20:37)
--- NOTE | 2018-07-29 06:20 | NUR ---
PT STILL DOES NOT WANT PM CARE AT THIS TIME.
[2018-07-29] MEDS: BLOOD GLUCOSE MONITORING 1 DEV DEV FS SCH ×4 (06:31→20:52)
--- NOTE | 2018-07-29 07:15 | NUR ---
REPORT GIVEN TO MORNING RN, JAC, FOR CONTINUITY OF CARE. VS STABLE CONDITION AT THIS TIME.
--- NOTE | 2018-07-29 07:19 | NUR ---
RECEIVED BEDSIDE REPORT FROM [employer] RN, DAVE, FOR CONTINUITY OF CARE. PATIENT IS AAOX4, ABLE TO FOLLOW COMMANDS AND MAKE NEEDS KNOWN. PATIENT SKIN IS WARM, DRY, AFEBRILE, AND INTACT. HE HAS A PICC LINE TO WILI, ASYMPTOMATIC AND PATENT. PATIENT IS ON NASAL OXIMIZER AT 6LPM, BREATHING EVEN AND UNLABORED. SB ON MONITOR, DENIES PAIN AT THIS TIME. NO SIGNS OF DISTRESS AT THIS TIME, WILL CONTINUE TO MONITOR.
[2018-07-29 07:57] LABS: BASOPHILS % (AUTO) 0.1 % (0.0-2.0); EOSINOPHILS # (AUTO) 0.3 K/uL (0-0.4); EOSINOPHILS % (AUTO) 1.6 % (0.0-4.0); HEMATOCRIT 35.4 % (36-52); HEMOGLOBIN 11.5 g/dL (12.0-18.0); LYMPHOCYTES # (AUTO) 0.4 K/uL (2.0-11.5); LYMPHOCYTES % (AUTO) 2.4 % (20.5-51.1); MEAN CORPUSCULAR HEMOGLOBIN 29 pg (27-31); MEAN CORPUSCULAR HGB CONC 33 g/dL (33-37); MEAN CORPUSCULAR VOLUME 89.4 fL (80-94); MONOCYTES # (AUTO) 0.5 K/uL (0.8-1.0); MONOCYTES % (AUTO) 2.8 % (1.7-9.3); NEUTROPHILS # (AUTO) 16.9 K/uL (1.8-7.7); NEUTROPHILS % (AUTO) 93.1 % (42.2-75.2); PLATELET COUNT (AUTO) 207 K/uL (140-450); RED BLOOD CELL COUNT(AUTO) 3.96 MIL/uL (4.20-6.10); RED CELL DISTRIBUTION WIDTH 15.3 % (11.6-13.7); WHITE BLOOD COUNT (AUTO) 18.2 K/uL (4.8-10.8)
[2018-07-29 08:18] LABS: ALBUMIN 2.2 g/dL (3.4-5.0); CARBON DIOXIDE 26.3 mmol/L (21-32); CREATININE 0.8 mg/dL (0.7-1.3); POTASSIUM 4.3 mmol/L (3.5-5.1); TOTAL BILIRUBIN 0.4 mg/dL (0.0-1.0)
[2018-07-29] MEDS: GABAPENTIN 300 MG CAP PO SCH ×2 (08:46→20:36)
[2018-07-29] MEDS: MULTIVITAMIN 1 TAB PO SCH (08:46)
[2018-07-29] MEDS: CALCIUM CARB/VIT-D 500 MG/200 IU 1 TAB PO SCH (08:46)
[2018-07-29] MEDS: FERROUS SULFATE 325 MG TABEC PO SCH ×2 (08:46→17:41)
[2018-07-29] MEDS: OSELTAMIVIR PHOSPHATE 75 MG CAP PO SCH ×2 (08:47→20:36)
[2018-07-29] MEDS: CYANOCOBALAMIN 100 MCG TAB PO SCH (08:47)
[2018-07-29] MEDS: LEVOFLOXACIN 250 MG/D5 PREMIX 50 ML IV SCH (08:47)
[2018-07-29] MEDS: ENOXAPARIN 40 MG/0.4 ML SYR SUBQ SCH (08:49)
[2018-07-29] MEDS: PANTOPRAZOLE 40 MG INJ VIAL IVP SCH (08:49)
[2018-07-29] MEDS: levETIRAcetam 750 MG in NACL 0.9% 100 ML IV SCH ×2 (08:49→20:56)
[2018-07-29] MEDS: MORPHINE SULFATE 2 MG/ML SYR IVP PRN ×3 (09:06→22:24)
--- NOTE | 2018-07-29 09:12 | NUR ---
ADMINISTERED SCHEDULED MEDS ORDERED, GAVE PRN MORPHINE 2MG IVP FOR LEG AND STOMACH PAIN 10/01, PATIENT TOLERATED WELL.
--- NOTE | 2018-07-29 09:27 | NUR ---
DR. MURPHY IN TO SEE AND EXAMINE PATIENT, UPDATED ON PATIENT'S CONDITION. WILL FOLLOW UP WITH ANY ORDERS.
--- NOTE | 2018-07-29 11:20 | NUR ---
PATIENT COMPLAINING OF 10/10 LEG AND BACK PAIN, GIVEN PRN MORPHINE 4MG IVP, TOLERATED WELL. WILL CONTINUE TO MONITOR
--- NOTE | 2018-07-29 14:46 | NUR ---
PATIENT COMPLAINING OF 5/10 PAIN, EDUCATED ON PAIN MANAGEMENT, GAVE PRN MORPHINE 2MG IVP, PATIENT TOLERATED WELL.
--- NOTE | 2018-07-29 16:07 | NUR ---
PATIENT SITTING, WATCHING TV, NO SIGNS OF DISTRESS NOTED.
--- NOTE | 2018-07-29 17:08 | NUR ---
TRANSFERRED PATIENT TO [facility] VIA WHEELCHAIR, NO SIGNS OF DISTRESS DURING TRANSFER. PATIENT WAS HOOKED TO MINING CAPTAIN, ON NASAL OXIMIZER 6 LPM. NO SIGNS OF DISTRESS AT THIS TIME
--- NOTE | 2018-07-29 17:20 | NUR ---
RECEIVED PT REPORT FROM ICU NURSE AT BEDSIDE. PT CAME WITH WHEELCHAIR. AAOX4. PT ON OXYMIZER 6L. SKIN INTACT. PICC LINE TO WILI, FLUSHED, ASYMPTOMATIC AND PATENT. NO IVF ORDERED AT THIS TIME. [place] DUE TO THE TRANSFER, RR24. SB ON MONITOR, VITALS TAKEN. ORIENTED PT TO ROOM. PERSONAL ITEMS WITHIN REACH. BED IN LOWEST POSITION. CALL LIGHT WITHIN REACH. WILL CONTINUE TO MONITOR.
--- NOTE | 2018-07-29 18:10 | NUR ---
OFFERED TO PAD THE SIDE RAIL FOR SZ PRECAUTIONS. PT REFUSED. PT C/O KNEE PAIN, BACK PAIN, AND LEFT ABD PAIN. PAIN MED ADMINISTERED ORDERED. PT CONTINUES TO EAT DINNER.
--- NOTE | 2018-07-29 19:20 | NUR ---
REPORT GIVEN TO MUSIC ENGRAVER RN FOR CONTINUITY OF CARE. PT IS STABLE AT THIS TIME.
--- NOTE | 2018-07-29 19:21 | NUR ---
RECEIVED PT IN STABLE CONDITION FROM AM NURSE. AWAKE,ALERT AND ORIENTED X4. ON TELE MONITOR. NO RESPIRATORY DISTRESS NOTED . ON O2 6L/ BY OXYMIZER. O2 SAT 92%. NO C/O ANY PAIN NOTED. HAS IVF INFUSING ON THE RT UPPER ARM PICC LINE. CLEAR AND PATENT. PLAN OF CARE DISCUSSED AND VERBALIZED UNDERSTANDING. BE DON LOWEST POSITION. CALL LIGHT PLACED WITHIN EASY REACH. WILL CONTINUE TO MONITOR.
--- NOTE | 2018-07-29 20:51 | NUR ---
RECEIVED PATIENT ON 6L OXYMIZER, PULSE OX SAT 80%. PATIENT SITTING UP IN BED STATING TO BE SHORT OF BREATH. PATIENT PLACED ON BIPAP. SCHEDULED BREATHING TREATMENT ADMINISTERED. TOLERATED TX WELL. NO ADVERSE SIDE EFFECTS. PATIENT STATES TO BE FEELING BETTER. PATIENT REFUSED SKIN GEL BARRIER AT THIS TIME. STATES THAT "IT FEELS BETTER WITHOUT IT". SKIN INTACT. NO REDNESS. TOLERATING BIPAP WELL. NO RESPIRATORY DISTRESS NOTED AT THIS TIME. WILL CONTINUE TO MONITOR.
--- NOTE | 2018-07-29 22:00 | NUR ---
PT AWAKE. ON O2 OXYMIZER. NO DISTRESS NOTED. WILL CONTINUE TO MONITOR.
[2018-07-30 00:40] VITALS: BP 140/80
[2018-07-30] MEDS: MORPHINE SULFATE 4 MG/ML SYR IVP PRN ×4 (00:45→20:39)
[2018-07-30] MEDS: methylPREDNISolone SS 40 MG/ML VIAL IVP SCH ×2 (00:45→05:25)
[2018-07-30] MEDS: ALBUTEROL 0.083% 2.5 MG/3 ML NEBU IH SCH ×4 (01:31→19:27)
--- NOTE | 2018-07-30 01:56 | NUR ---
TITRATED OXYMIZER TO 8L, PULSE OX SAT 93%. PATIENT COMFORTABLY RESTING. WILL CONTINUE TO MONITOR.
[2018-07-30 03:50] VITALS: BP 154/88
--- NOTE | 2018-07-30 03:50 | NUR ---
PT AWAKE. VITAL SIGNS TAKEN. C/O PAIN ,HE SAID THIS TIME IS ABDOMEN.WILL MEDICATE ORDERED.
[2018-07-30] MEDS: MORPHINE SULFATE 2 MG/ML SYR IVP PRN ×3 (03:55→18:21)
[2018-07-30] MEDS: METHADONE 10 MG TAB PO SCH ×3 (05:25→22:07)
--- NOTE | 2018-07-30 06:15 | NUR ---
BLOOD SUGAR THIS AM 97.NO INSULIN NEEDED.
[2018-07-30] MEDS: BLOOD GLUCOSE MONITORING 1 DEV DEV FS SCH ×4 (06:29→20:52)
[2018-07-30] MEDS: KETOROLAC 30 MG/ML VIAL IVP PRN (06:52)
--- NOTE | 2018-07-30 07:26 | NUR ---
RECEIVED PT REPORT FROM ON SITE CONSTRUCTION SUPERINTENDENT RN. PT IS AAOX4. ON OXYMIZER 6L. SKIN INTACT. PICC LINE TO WILI, FLUSHED, ASYMPTOMATIC AND PATENT. NO IVF ORDERED AT THIS TIME. T[place]A DUE TO TALKING, RR23. SB ON MONITOR. ORIENTED PT TO ROOM. PERSONAL ITEMS WITHIN REACH. BED IN LOWEST POSITION. CALL LIGHT WITHIN REACH. WILL CONTINUE TO MONITOR.
--- NOTE | 2018-07-30 07:37 | NUR ---
ENDORSED PT IN STABLE CONDITION TO AM NURSE.
[2018-07-30 07:41] LABS: ANION GAP 13.2 (8-16); CARBON DIOXIDE 25.9 mmol/L (21-32); CREATININE 0.7 mg/dL (0.7-1.3); POTASSIUM 4.1 mmol/L (3.5-5.1)
[2018-07-30 07:59] LABS: BASOPHILS % (AUTO) 0.1 % (0.0-2.0); EOSINOPHILS # (AUTO) 0.6 K/uL (0-0.4); EOSINOPHILS % (AUTO) 3.2 % (0.0-4.0); HEMOGLOBIN 12.3 g/dL (12.0-18.0); LYMPHOCYTES # (AUTO) 0.7 K/uL (2.0-11.5); LYMPHOCYTES % (AUTO) 3.3 % (20.5-51.1); MEAN CORPUSCULAR HEMOGLOBIN 29 pg (27-31); MEAN CORPUSCULAR HGB CONC 33 g/dL (33-37); MEAN CORPUSCULAR VOLUME 88.5 fL (80-94); MONOCYTES # (AUTO) 0.4 K/uL (0.8-1.0); MONOCYTES % (AUTO) 2.1 % (1.7-9.3); NEUTROPHILS # (AUTO) 18.6 K/uL (1.8-7.7); NEUTROPHILS % (AUTO) 91.3 % (42.2-75.2); PLATELET COUNT (AUTO) 208 K/uL (140-450); RED BLOOD CELL COUNT(AUTO) 4.29 MIL/uL (4.20-6.10); RED CELL DISTRIBUTION WIDTH 15.7 % (11.6-13.7); WHITE BLOOD COUNT (AUTO) 20.3 K/uL (4.8-10.8)
[2018-07-30 08:00] VITALS: BP 154/89
[2018-07-30] MEDS: PANTOPRAZOLE 40 MG INJ VIAL IVP SCH (08:43)
[2018-07-30] MEDS: GABAPENTIN 300 MG CAP PO SCH ×2 (08:44→22:07)
[2018-07-30] MEDS: FERROUS SULFATE 325 MG TABEC PO SCH ×2 (08:44→18:10)
[2018-07-30] MEDS: OSELTAMIVIR PHOSPHATE 75 MG CAP PO SCH ×2 (08:45→20:39)
[2018-07-30] MEDS: MULTIVITAMIN 1 TAB PO SCH (08:45)
[2018-07-30] MEDS: LEVOFLOXACIN 250 MG/D5 PREMIX 50 ML IV SCH (08:45)
[2018-07-30] MEDS: CALCIUM CARB/VIT-D 500 MG/200 IU 1 TAB PO SCH (08:45)
--- NOTE | 2018-07-30 08:48 | NUR ---
ADMINISTERED MORNING MEDS TO PT. PT TOLERATED THEM WELL. MORPHINE 4MG GIVEN FOR 10/10 PAIN IN THE KNEES. WILL CONTINUE TO ROUND FREQUENTLY ON PT. BED IN LOW POSITION, CALL LIGHT WITHIN REACH.
[2018-07-30] MEDS: CYANOCOBALAMIN 100 MCG TAB PO SCH (08:49)
[2018-07-30] MEDS: ENOXAPARIN 40 MG/0.4 ML SYR SUBQ SCH (08:50)
[2018-07-30] MEDS: levETIRAcetam 750 MG in NACL 0.9% 100 ML IV SCH ×2 (09:05→20:39)
--- NOTE | 2018-07-30 11:27 | NUR ---
PT SLEEPING IN BED. NO SIGNS OF PAIN OR SOB AT THIS TIME. WILL CONTINUE TO MONITOR PT. BED IN LOW POSITION, CALL LIGHT WITHIN REACH.
[2018-07-30 12:00] VITALS: BP 148/90
--- NOTE | 2018-07-30 13:24 | NUR ---
PT RESTING IN BED WATCHING TV. ALL NEEDS CURRENTLY MET. WILL CONTINUE TO MONITOR PT FOR MED EFFECTIVENESS.
--- NOTE | 2018-07-30 15:19 | NUR ---
CM NOTE FAXED CLINICAL PACKET TO [facility]. NO DC ORDER AT THIS TIME.
--- NOTE | 2018-07-30 15:38 | NUR ---
PT RESTING IN BED. PAIN MEDS WERE GIVEN FOR SEVERE PAIN IN PT'S ABDOMEN. PT STATES INSTANT FEELING OF RELIEF. O2 SAT WITHIN NORMAL LIMITS. ALL NEEDS CURRENTLY MET.
[2018-07-30 16:00] VITALS: BP 129/84
[2018-07-30] MEDS: ALBUTEROL 0.083% 2.5 MG/3 ML NEBU INH PRN (16:18)
--- NOTE | 2018-07-30 19:25 | NUR ---
ENDORSED PT TO SHOP ROUTER FOR CONTINUITY OF CARE. PT IN STABLE CONDITION.
--- NOTE | 2018-07-30 19:27 | NUR ---
PATIENT PRESENTING WITH INCREASED COUGHING WITH SOB NOTED AT THIS TIME SCHEDULED HHN THERAPY AND RESPIRATORY DRUG GIVEN AT THIS TIME Addendum: 07/30/18 at 2136 by Shekhar Felipe RT BIPAP AT BEDSIDE
--- NOTE | 2018-07-30 20:00 | NUR ---
SEEN PT AWAKE, ALERT AND ORIENTED. INITIAL ASSESSMENT DONE. VITAL SIGNS CHECKED. PT'S O2SAT IS BET 89%-91% ON 6L VIA OXYMIZER. PT COMPLAINING OF RLQ ABDOMINAL PAIN. WILL MEDICATE FOR PAIN ORDERED. PT ASKING ABOUT HER ATIVAN. INFORMED HIM, NOTHING WAS ENDORSED. HE SAID "I ALREADY MENTIONED IT TO THE NURSE EARLIER." TOLD PT THAT WILL CALL MD AND FOLLOW UP. PT VERBALIZED UNDERSTANDING. SAFETY REINFORCED. PT DENIES ANY RESPIRATORY DISTRESS.
[2018-07-30 20:30] VITALS: BP 106/69
--- NOTE | 2018-07-30 20:45 | NUR ---
SEEN PT IN BED WATCHING TV COMFORTABLY. PT MEDICATED FOR PAIN ORDERED. BLOOD SUGAR CHECKED:83. PT GIVEN SNACKS AND ENCOURAGED TO EAT. MEDICATIONS GIVEN W/ TEACHINGS. PT VERBALIZED UNDERSTANDING. CALL LIGHT W/IN REACH. WILL CONTINUE TO MONITOR.
--- NOTE | 2018-07-30 22:00 | NUR ---
PAGED CATERING AND EVENTS MANAGER MD REGARDING PT'S ATIVAN. WILL AWAIT FOR CALL BACK.
--- NOTE | 2018-07-30 22:18 | NUR ---
SPOKE TO DR MONTES REGARDING PT ASKING FOR ATIVAN. NEW ORDER RECEIVED.
--- NOTE | 2018-07-30 23:00 | NUR ---
ENDORSED PATIENT TO CRISTIAN LR FOR CONTINUITY OF CARE.
--- NOTE | 2018-07-30 23:05 | NUR ---
RECEIVED REPORT FROM RN. PT SLEEPING IN BED. NO S/S OF ACUTE DISTRESS. ON OXIMIZER 6L. PICC LINE TO RIGHT UPPER ARM PATENT AND INTACT. CALL LIGHT WITHIN REACH. SAFETY MEASURES ENSURED. WILL CONTINUE TO MONITOR.
[2018-07-31] VITALS: BP 120/76
[2018-07-31] MEDS: MORPHINE SULFATE 2 MG/ML SYR IVP PRN ×4 (00:28→15:50)
[2018-07-31] MEDS: ALBUTEROL 0.083% 2.5 MG/3 ML NEBU IH SCH ×3 (01:34→13:24)
[2018-07-31] MEDS: LORazepam 1 MG TAB PO PRN ×3 (01:35→16:20)
[2018-07-31] MEDS: MORPHINE SULFATE 4 MG/ML SYR IVP PRN ×4 (03:01→17:42)
[2018-07-31 04:00] VITALS: BP 112/72
--- NOTE | 2018-07-31 04:12 | NUR ---
Pt sleeping in bed. No s/s of acute distress. Call light within reach. Safety measures ensured. Will continue to monitor.
[2018-07-31] MEDS: METHADONE 10 MG TAB PO SCH ×2 (04:33→14:35)
[2018-07-31] MEDS: BLOOD GLUCOSE MONITORING 1 DEV DEV FS SCH ×3 (05:30→16:30)
--- NOTE | 2018-07-31 07:25 | NUR ---
RECEIVED PT REPORT FROM CONSTRUCTION CREW MEMBER NURSE. PT IS ASLEEP, OXIMIZER ON AT 6L/MIN. SKIN INTACT. NO S/S OF ACUTE DISTRESS OR SOB NOTED AT THIS TIME. DOUBLE LUMEN PICC LINE IN THE RUE NOTED. FALL PRECAUTIONS ARE IN PLACE. CALL LIGHT IS WITHIN REACH. WILL CONTINUE TO MONITOR PT.
[2018-07-31 07:47] LABS: EOSINOPHILS # (AUTO) 0.4 K/uL (0-0.4); EOSINOPHILS % (AUTO) 3.1 % (0.0-4.0); HEMATOCRIT 37.3 % (36-52); HEMOGLOBIN 12.3 g/dL (12.0-18.0); LYMPHOCYTES # (AUTO) 1.4 K/uL (2.0-11.5); LYMPHOCYTES % (AUTO) 9.9 % (20.5-51.1); MEAN CORPUSCULAR HEMOGLOBIN 29 pg (27-31); MEAN CORPUSCULAR HGB CONC 33 g/dL (33-37); MEAN CORPUSCULAR VOLUME 88.9 fL (80-94); MONOCYTES # (AUTO) 0.6 K/uL (0.8-1.0); MONOCYTES % (AUTO) 4.2 % (1.7-9.3); NEUTROPHILS # (AUTO) 11.7 K/uL (1.8-7.7); NEUTROPHILS % (AUTO) 82.8 % (42.2-75.2); PLATELET COUNT (AUTO) 216 K/uL (140-450); RED CELL DISTRIBUTION WIDTH 15.4 % (11.6-13.7); WHITE BLOOD COUNT (AUTO) 14.1 K/uL (4.8-10.8)
[2018-07-31 08:00] VITALS: BP 123/75
[2018-07-31] MEDS: PANTOPRAZOLE 40 MG INJ VIAL IVP SCH (08:05)
[2018-07-31] MEDS: CYANOCOBALAMIN 100 MCG TAB PO SCH (08:05)
[2018-07-31] MEDS: OSELTAMIVIR PHOSPHATE 75 MG CAP PO SCH (08:06)
[2018-07-31] MEDS: FERROUS SULFATE 325 MG TABEC PO SCH ×2 (08:06→17:00)
[2018-07-31] MEDS: GABAPENTIN 300 MG CAP PO SCH (08:06)
[2018-07-31] MEDS: CALCIUM CARB/VIT-D 500 MG/200 IU 1 TAB PO SCH (08:07)
[2018-07-31] MEDS: MULTIVITAMIN 1 TAB PO SCH (08:07)
[2018-07-31] MEDS: ENOXAPARIN 40 MG/0.4 ML SYR SUBQ SCH (08:18)
--- NOTE | 2018-07-31 08:30 | NUR ---
AM MEDS ADMINISTERED. PT C/O PAIN ON HIS R SIDE ABD, MORPHINE 4 MG IV ADMINISTERED FOR PAIN, WILL REASSESS. PT ALSO C/O ANXIETY, PRN PO ATIVAN ADMINISTERED. PT EATING BREAKFAST AT THIS TIME.
[2018-07-31] MEDS ORDERED: methylPREDNISolone SS 40 MG/ML VIAL IVP SCH (09:00)
[2018-07-31] MEDS: levETIRAcetam 750 MG in NACL 0.9% 100 ML IV SCH (10:28)
--- NOTE | 2018-07-31 10:58 | NUR ---
PT C/O HIS ABD SIDE PAIN, HE IS DESCRIBING IT IF IT FEELS LIKE HE "BROKE HIS RIB". DR BADILLO NOTIFIED OF PT'S COMPLAINT, AND HE WILL ASSESS THE PT.
[2018-07-31] MEDS ORDERED: LEVO750T2 PO (11:30)
--- NOTE | 2018-07-31 11:30 | NUR ---
PT SEEN BY DR BADILLO. REMOVED OXIMIZER AND PLACED PT ON REGULAR NASAL CANNULA PER DR'S ORDER.
[2018-07-31 12:00] VITALS: BP 123/83
--- NOTE | 2018-07-31 13:05 | NUR ---
CM NOTE RECEIVED ORDER FOR DC TO [facility]. FAXED ORDER TO [facility]. PER [facility] MIAN VICK PH# [phone], FOR [facility] AUTH# [id number], FOR [facility] AUTH# [id number].
--- NOTE | 2018-07-31 13:27 | NUR ---
PT GETTING A BREATHING TX AT THIS TIME.
--- NOTE | 2018-07-31 13:35 | NUR ---
CM NOTE PER GONZALO OF [facility], PATIENT CAN GO TO [address] CHACON TODAY, NUMBER TO CALL FOR REPORT PH# [phone]. PER JAS OF [facility], PATIENT WILL BE PICKED UP AT 1800 TIME TODAY GOING TO [facility]. JAS HENRIQUEZ [facility] WAS MADE AWARE OF PATIENT'S HEIGHT AND WEIGHT AND THAT PATIENT IS ON O2 NC CONTINUOUS. GUANAKO FOSTER AWARE.
[2018-07-31] MEDS: ALBUTEROL 0.083% 2.5 MG/3 ML NEBU INH PRN (16:38)
--- NOTE | 2018-07-31 16:56 | NUR ---
REPORT GIVEN TO CRISTIAN BRUMFIELD, AT [facility] FOR PT TRANSFER THIS EVENING.
--- NOTE | 2018-07-31 18:50 | NUR ---
PT HAS TRANSFERRED BACK TO [facility]. DC INSTRUCTIONS GIVEN, PT VERBALIZED UNDERSTANDING. PICC LINE DC'D, WRIST BANDS REMOVED. PT IS UP TO DATE ON HIS VACCINES. REPORT WAS GIVEN TO CRISTIAN BRUMFIELD, AT THE PT'S CARE FACILITY. PT LEFT WITH HIS BELONGINGS IN STABLE CONDITION ON 6L O2 NC VIA [facility].
[2018-08-01] MEDS ORDERED: LEVOFLOXACIN 750 MG TAB PO SCH (09:00)
== END 2018-07-31 18:50 | DRG 720 ==
LOC: MED 10:39 → MIC 13:09 → MTU 07-29 17:00
PROVIDERS: ADMIT Internal Medicine; ATTEND Internal Medicine
PROC: 5A09357 Assistance with Respiratory Ventilation, Less than 24 Consecutive Hours, Continuous Positive Airway Pressure (ICD-10-PCS; principal; 2018-07-25)
PROC: 02HV33Z Insertion of Infusion Device into Superior Vena Cava, Percutaneous Approach (ICD-10-PCS; 2018-07-25)
PROC: B548ZZA Ultrasonography of Superior Vena Cava, Guidance (ICD-10-PCS; 2018-07-25)
PROC: 5A09357 Assistance with Respiratory Ventilation, Less than 24 Consecutive Hours, Continuous Positive Airway Pressure (ICD-10-PCS; 2018-07-26)
PROC: 5A09357 Assistance with Respiratory Ventilation, Less than 24 Consecutive Hours, Continuous Positive Airway Pressure (ICD-10-PCS; 2018-07-29)
DX: A41.9 Sepsis, unspecified organism (principal); J96.01 Acute respiratory failure with hypoxia; D69.6 Thrombocytopenia, unspecified; E11.42 Type 2 diabetes mellitus with diabetic polyneuropathy; J12.9 Viral pneumonia, unspecified; J15.9 Unspecified bacterial pneumonia; E66.01 Morbid (severe) obesity due to excess calories; I11.0 Hypertensive heart disease with heart failure; I50.9 Heart failure, unspecified; M32.9 Systemic lupus erythematosus, unspecified; E80.21 Acute intermittent (hepatic) porphyria; E78.5 Hyperlipidemia, unspecified; F41.9 Anxiety disorder, unspecified; Z68.41 Body mass index [BMI] 40.0-44.9, adult; G89.4 Chronic pain syndrome; G40.909 Epilepsy, unspecified, not intractable, without status epilepticus; K58.9 Irritable bowel syndrome, unspecified; R65.20 Severe sepsis without septic shock; Z85.038 Personal history of other malignant neoplasm of large intestine; Z88.0 Allergy status to penicillin; Z98.84 Bariatric surgery status; F32.9 Major depressive disorder, single episode, unspecified; G43.909 Migraine, unspecified, not intractable, without status migrainosus
CPT/HCPCS: 36415; 71045; 71275; 80048; 80053; 81001; 82948; 83605; 83735; 83880; 84484; 85025; 85610; 85730; 87040; 87081; 87086; 87804; 93005; 94640; 94660; 99291; C1751; C9113; J0696; J1650; J1815; J1885; J1953; J1956; J2270; J2920; J2930; J7030; J7060; J7613; J7644; Q0092; Q9967

== ENCOUNTER 2019-02-14 08:09 | Emergency (ER) | payer OTHER ==
[~2019-02-14] VITALS: Ht 188 cm; Wt 127.0 kg
[~2019-02-14 08:09] MED LIST: ACET-2619 PO; ACET-5636 PO; ASPI-1718 PO; ATI.5 PO; CARV6.25 PO; DEXT15SY7 PO; DOCU-299 PO; DOL10 PO; FERR325E14 PO; GABA400C PO; HYDR200T5 PO; IMI50 PO; INSU100S22 SUBQ; LACT10SO1 PO; LEVE750T3 PO; LEVO750T2 PO; LIP80 PO; MAGN400S60 PO; METO-485 PO; MIRABULK PO; NITR0.4T2 SL; NUTR887L PO; OFLO5SOL27 OT; OLOPATADINE HCL BOTH EYES; PANT40EC PO; PRED10TA5 PO; SENN-72 PO; SIME80TA22 PO; SUCR1TAB35 PO; SULF500T6 PO; THO25 PO; VENL150C1 PO; ZOLP10TA1 PO; [UNRECOGNIZED DRUG - CODE] PO
--- NOTE | 2019-02-14 08:09 | NUR ---
Patient to bed 9 by EMS
[2019-02-14 08:18] VITALS: BP 122/90
[2019-02-14] MEDS ORDERED: NACL 0.9% 1,000 ML IV SCH (08:29)
[2019-02-14] MEDS ORDERED: MORPHINE SULFATE 10 MG/ML VIAL IVP ONE (08:30)
[2019-02-14] MEDS ORDERED: ONDANSETRON 4 MG/2 ML VIAL IVP ONE (08:30)
[2019-02-14] MEDS ORDERED: fentaNYL 0.05 MG/ML VIAL IVP ONE (09:00)
--- NOTE | 2019-02-14 09:00 | NUR ---
PATIENT PRESENTS TO ED WITH LEFT LEG PAIN, 10/10. PT WAS RECENTLY ADMITTED IN [place] FOR INFECTION OF LEFT LEG. -SWELLING, -REDNESS, -NUMBNESS. DENIES N/V/D; SKIN IS PINK/WARM/DRY; AAOX4 WITH EVEN AND STEADY GAIT; LUNGS CLEAR BL; HR EVEN AND REGULAR; PT DENIES ANY FEVER, CP, SOB, OR COUGH AT THIS TIME; PATIENT STATES PAIN OF 10/10 AT THIS TIME; VSS; PATIENT POSITIONED FOR COMFORT; HOB ELEVATED; BEDRAILS UP X2; BED DOWN. ER MD MADE AWARE OF PT STATUS.
[2019-02-14 09:14] LABS: BASOPHILS % (AUTO) 0.3 % (0.0-2.0); EOSINOPHILS # (AUTO) 0.1 K/uL (0-0.4); EOSINOPHILS % (AUTO) 1.6 % (0.0-4.0); HEMATOCRIT 40.3 % (36-52); HEMOGLOBIN 13.1 g/dL (12.0-18.0); LYMPHOCYTES # (AUTO) 2.2 K/uL (2.0-11.5); MEAN CORPUSCULAR HEMOGLOBIN 28 pg (27-31); MEAN CORPUSCULAR HGB CONC 33 g/dL (33-37); MEAN CORPUSCULAR VOLUME 87.3 fL (80-94); MONOCYTES # (AUTO) 0.8 K/uL (0.8-1.0); MONOCYTES % (AUTO) 10.7 % (1.7-9.3); NEUTROPHILS % (AUTO) 56.4 % (42.2-75.2); PLATELET COUNT (AUTO) 192 K/uL (140-450); RED BLOOD CELL COUNT(AUTO) 4.61 MIL/uL (4.20-6.10); WHITE BLOOD COUNT (AUTO) 7.1 K/uL (4.8-10.8)
[2019-02-14 09:24] LABS: ANION GAP 12.8 (8-16); CARBON DIOXIDE 28.9 mmol/L (21-32); CREATININE 0.7 mg/dL (0.7-1.3); POTASSIUM 3.7 mmol/L (3.5-5.1)
[2019-02-14 09:27] LABS: PROTHROMBIN TIME 10.4 secs (10.8-13.4)
[2019-02-14 09:28] LABS: ALBUMIN 3.2 g/dL (3.4-5.0); TOTAL BILIRUBIN 0.4 mg/dL (0.0-1.0)
--- NOTE | 2019-02-14 09:50 | NUR ---
URINE COLLECTED AT THIS TIME
[2019-02-14 10:16] LABS: APPEARANCE,URINE CLEAR (CLEAR); BILIRUBIN,URINE NEGATIVE (NEGATIVE); BLOOD, URINE NEGATIVE (NEGATIVE); COLOR,URINE YELLOW (YELLOW); LEUKOCYTE ESTERASE ,URINE NEGATIVE (NEGATIVE); NITRITE, URINE NEGATIVE (NEGATIVE); UGLUCOSE NEGATIVE (NEGATIVE)
[2019-02-14] MEDS ORDERED: HYDROcodone/APAP 5/325 MG 1 TAB TAB PO ONE (11:30)
[2019-02-14 12:30] VITALS: BP 120/84
--- NOTE | 2019-02-14 12:31 | NUR ---
Patient discharged with v/s stable. Written and verbal after care instructions given and explained. Patient verbalized understanding. Ambulance Transport to [facility]. Report given to Monica from [facility]. All questions addressed prior to discharge. Advised to follow up with PMD.
== END 2019-02-14 12:31 | disposition home or self-care (01) ==
LOC: MED 08:09
DX: M25.562 Pain in left knee (principal); G89.18 Other acute postprocedural pain; R11.2 Nausea with vomiting, unspecified; J45.909 Unspecified asthma, uncomplicated; I11.0 Hypertensive heart disease with heart failure; I50.9 Heart failure, unspecified; E11.9 Type 2 diabetes mellitus without complications; Z86.69 Personal history of other diseases of the nervous system and sense organs; Z96.652 Presence of left artificial knee joint; Z79.899 Other long term (current) drug therapy; Z79.891 Long term (current) use of opiate analgesic; Z79.4 Long term (current) use of insulin; Z79.82 Long term (current) use of aspirin; Z79.2 Long term (current) use of antibiotics; Z88.0 Allergy status to penicillin
CPT/HCPCS: 36415; 71045; 80053; 81003; 83605; 83880; 84484; 85025; 85610; 85730; 87040; 87804; 93005; 93971; 96361; 96374; 96375; 99284; J2405; J3010; J7030; Q0092; J2270